=== PATIENT | male | born 1975 | race Caucasian/White ===

== ENCOUNTER → 2017-02-28 | Outpatient (CLI) | payer OTHER ==
[~2017-02-28] MED LIST: CLR10 PO
[2017-02-28 18:07] LABS: ALT/SGPT 40 U/L (12-78); AST/SGOT 25 U/L (15-37); BLOOD UREA NITROGEN 14 mg/dl (7-18); BUN/CREATININE RATIO 14.1 (10-20); CALCIUM 8.7 mg/dl (8.5-10.1); CARBON DIOXIDE 27 mmol/L (21-32); CHLORIDE 104 mmol/L (98-107); CREATININE 0.99 mg/dl (0.60-1.40); GLUCOSE 85 mg/dl (70-99); POTASSIUM 3.9 mmol/L (3.5-5.1); SODIUM 138 mmol/L (136-145)
[2017-02-28 18:10] LABS: ALKALINE PHOSPHATASE 107 U/L (45-117)
== END | disposition home or self-care (01) ==
LOC: C.LABPVFM 13:34
PROVIDERS: ATTEND Nurse Practitioner
DX: E80.4 Gilbert syndrome (principal)

== ENCOUNTER 2020-12-13 15:28 | Inpatient (IN) ==
[2020-12-13 16:43] LABS: Hematocrit (blood only) 43.7 % (42-52); Mean Corpuscular Hemoglobin 30.8 pg (25-34); Mean Corpuscular Hgb Conc 34.3 g/dL (32-36); Mean Corpuscular Volume 89.7 fL (80-100); Mean Platelet Volume 10.1 fL (7.4-10.4); Platelet Count 202 K/uL (130-400); RDW Coefficient of Variation 13.2 % (11.5-14.5); RDW Standard Deviation 43.7 fL (36.4-46.3); Red Blood Count 4.87 M/uL (4.7-6.1); White Blood Count 9.18 K/uL (4.8-10.8)
--- NOTE | 2020-12-13 16:47 | Emergency Department Note ---
Impression & Plan COVID-19, Hypoxia ED Provider Note Provider: Brennan Barnes MD DATE OF SERVICE: 12/13/2020 CHIEF COMPLAINT: Shortness of breath, Covid HISTORY OF PRESENT ILLNESS: Patient is a 45-year-old gentleman history of asthma presenting here today complaining of worsening shortness of breath in the set ting of Covid. Became symptomatic approximately 10 days ago. Tested positive just over a week ago. Other family members at home have been doing fairly well. Patient states fevers have begun to diego and his body myalgias have resolved. Denies significant nausea vomiting or diarrhea at this time. Reports that he has been following his pulse ox at home. Was seen here several days ago in the ER and had a evaluation. He is in the middle of azithromycin Z-Cody and has been taking some dexamethasone at home. Reports that he has a butyryl inhaler and the steroid have not seemed to help and he often gets coughing fits and short of breath with exertion. Denies chest pain or pressure. Denies any syncope. Patient reports that he is noted little bit overnight critically this morning that his pulse ox was dropped immediately after coughing fits with exertion. This afternoon he noted his pulse ox was dropping into the high 80s even at rest. Given this he came here for further evaluation. REVIEW OF SYSTEMS: A total of 10 review of systems was obtained and negative except as stated above in the HPI. PAST MEDICAL HISTORY: As noted above MEDICATIONS: Reviewed home medications with the patient SOCIAL HISTORY: Non-smoker, , lives at home PHYSICAL EXAM: GENERAL: alert and oriented in no acute distress seated on a chair in the room with mask in place Head: normocephalic and atraumatic EYES: No injection, discharge or icterus. NECK: Trachea midline. LUNGS: Airway patent. No retractions. Breath sounds clear with good air entry bilaterally. Mild tachypnea at times. HEART: Regular rate and rhythm. No chest wall tenderness ABDOMEN: Soft and non-tender, without guarding or rebound. SKIN: Acyanotic, warm, dry, without rashes EXTREMITIES: Without swelling, tenderness or deformity NEUROLOGICAL: No focal deficits. No aphasia. No facial droop or slurred speech. Ambulatory. EK bpm normal sinus rhythm. No PVC or PAC. No acute ST segment elevation or depression. QTC 432. CONTINUOUS CARDIAC MONITORING: was ordered and showed a heart rate of 70s to 90s bpm in normal sinus rhythm Patient's laboratory studies and imaging reviewed. Differential includes Reactive airway disease, pneumonia, pneumothorax, COPD, CHF, infections, cardiac ischemia, pulmonary embolism, musculoskeletal, gastrointestinal, as well as other pathologies. IMPRESSION/MEDICAL DECISION MAKING: Patient in the midst of the COVID-19 infection. Previously evaluated here approximately 2 days ago. Has been using inhaler and dexamethasone at home. Following pulse ox at home and now questioning some hypoxia at home. Patient denies significant pain. Does not appear meningitic. Denies significant abdominal or GI symptoms. Patient at rest here in the low 90s on room air initially. Discussed with the patient given complaints repeat blood work is reasonable as well as CT to exclude occult PE in the setting of Covid infection. Patient likely is otherwise fairly well-appearing and I doubt significant electrolyte abnormality. EKG and troponin were sent but have a low suspicion at this time for acute ACS. Blood work here without significant cytosis or anemia. No severe electrolyte abnormality. Troponin undetectable. CT scan per radiology without evidence of PE. I doubt of arterial pneumonia here. Has been on Z-Cody. Has been taking several days of some steroids at home. Patient requested a DuoNeb which was given. Patient's resting in the low 90s on room air. Ambulated him on reassessment in the room and after about a minute of walking around in the room patient's pulse ox dropped precipitously into the mid 80s. Patient was seated in the bed and places a nasal cannula oxygen 2L over the course of a minute or 2 rebounded in the low 90s. Given his desaturation discussed with the patient further observation here overnight to ensure stability of his condition. With the monitoring and adequate assessment of his true oxygen needs would be reasonable prior to discharge home likely with oxygen. Patient was in agreement this plan and the hospitalist was contacted. DIAGNOSIS: COVID-19, hypoxia DISPOSITION: Hospitalist will evaluate Patient was agreeable with this plan. Past Med/Surg History Medical History Asthma Surgical History H/O hernia repair Family History Father Hypertension Denies family history of Ovarian cancer Prostate cancer Diabetes Myocardial infarction Breast cancer Colorectal cancer Social History Smoking Status: Never smoker Second Hand Exposure: No; Hx Alcohol Use: Yes Alcohol type: beer Alcohol Intake Frequency: 2-3 x/Week Alcohol Intake Frequency Comment: 1-2 a week Hx Substance Use: No Preferred Language: Czech Communication Ability: Effective Radiography Technician Required: No Beliefs That Will Affect Care: None marital status: Current Living Situation: Spouse and Family current occupational status: employed Other Information That Helps Us Care for You: No Feels Safe at Home: Yes Safety Concerns: Feels Safe At This Time caffeine: Yes (coffee, tea, and soda) Dental Care, Regularly: Yes Physical Activity Frequency: Daily Seatbelt Use: always Sunscreen Use: No Assistive Devices: None Allergies Allergies Allergy/AdvReac Type Severity Reaction Status Date / Time No Known Drug Allergies AdvReac Unknown Verified 12/11/20 14:59 Home Meds Home Medications Medication Instructions Recorded Confirmed ibuprofen 200 mg tablet 400 mg PO UD PRN tab 09/10/18 12/13/20 acetaminophen 500 mg tablet 1,000 mg PO Q6H PRN 12/11/20 12/13/20 montelukast 10 mg tablet 10 mg PO DAILY 12/11/20 12/13/20 Previous Rx's Medication Instructions Recorded fluticasone furoate 100 1 inh INH DAILY #90 ea 05/02/20 mcg-vilanterol 25 mcg/dose inhalation powder (Breo Ellipta) albuterol sulfate 90 mcg/actuation 3 inh INHALATION Q6H #18 g 12/11/20 aerosol inhaler azithromycin 250 mg tablet See Rx Instructions PO .COMPLEX #6 12/11/20 (Zithromax Z-Cody) tab dexamethasone 6 mg tablet 6 mg PO DAILY #6 tab 12/11/20 (Decadron) Results & Data (ED) Vital Signs Vital Signs - 24 hr 12/13/20 15:30 12/13/20 16:19 12/13/20 16:30 Temperature 36 C L Temperature Source Temporal Artery Scan Pulse Rate 99 H 80 82 Pulse Rate [Right Radial] Pulse Rate from SpO2 Sensor 82 Pulse Rhythm Regular Respiratory Rate 22 21 22 Respiratory Effort / Characteristics Non-Labored Spontaneous Respiratory Depth Normal Blood Pressure 147/95 H 150/98 H 150/86 H Blood Pressure Mean 112 115 107 Blood Pressure Position Sitting Pulse Oximetry 91 94 94 Oxygen Delivery Method Room Air Room Air Room Air Oxygen Flow Rate Sepsis Recent Fever Within 48 Hours No Sepsis New/Unexplained Change in Mental Status N/A Sepsis Action Taken by Nursing No Action Required 12/13/20 17:00 12/13/20 17:30 12/13/20 18:00 Temperature Temperature Source Pulse Rate 78 80 75 Pulse Rate [Right Radial] Pulse Rate from SpO2 Sensor 78 77 76 Pulse Rhythm Respiratory Rate 21 19 22 Respiratory Effort / Characteristics Respiratory Depth Blood Pressure 143/85 H 143/92 H 142/82 H Blood Pressure Mean 104 109 102 Blood Pressure Position Pulse Oximetry 93 93 93 Oxygen Delivery Method Room Air Room Air Room Air Oxygen Flow Rate Sepsis Recent Fever Within 48 Hours Sepsis New/Unexplained Change in Mental Status Sepsis Action Taken by Nursing 12/13/20 18:33 12/13/20 18:34 12/13/20 18:40 Temperature Temperature Source Pulse Rate 75 81 Pulse Rate [Right Radial] 77 Pulse Rate from SpO2 Sensor 75 83 Pulse Rhythm Respiratory Rate 10 L 20 23 Respiratory Effort / Characteristics Spontaneous Respiratory Depth Blood Pressure Blood Pressure Mean Blood Pressure Position Pulse Oximetry 96 95 91 Oxygen Delivery Method Room Air Oxygen Flow Rate Sepsis Recent Fever Within 48 Hours Sepsis New/Unexplained Change in Mental Status Sepsis Action Taken by Nursing 12/13/20 18:50 12/13/20 19:00 12/13/20 19:10 Temperature Temperature Source Pulse Rate 82 79 78 Pulse Rate [Right Radial] Pulse Rate from SpO2 Sensor 84 82 80 Pulse Rhythm Respiratory Rate 23 21 24 Respiratory Effort / Characteristics Respiratory Depth Blood Pressure Blood Pressure Mean Blood Pressure Position Pulse Oximetry 93 93 92 Oxygen Delivery Method Room Air Oxygen Flow Rate Sepsis Recent Fever Within 48 Hours Sepsis New/Unexplained Change in Mental Status Sepsis Action Taken by Nursing 12/13/20 19:20 12/13/20 19:30 12/13/20 19:40 Temperature Temperature Source Pulse Rate 97 H 83 Pulse Rate [Right Radial] Pulse Rate from SpO2 Sensor 106 H 99 H 83 Pulse Rhythm Respiratory Rate 28 H 19 Respiratory Effort / Characteristics Respiratory Depth Blood Pressure 181/112 H Blood Pressure Mean 135 Blood Pressure Position Pulse Oximetry 88 L 95 94 Oxygen Delivery Method Nasal Cannula Oxygen Flow Rate 2 2 Sepsis Recent Fever Within 48 Hours Sepsis New/Unexplained Change in Mental Status Sepsis Action Taken by Nursing 12/13/20 19:53 12/13/20 20:02 12/13/20 20:10 Temperature Temperature Source Pulse Rate 80 78 Pulse Rate [Right Radial] Pulse Rate from SpO2 Sensor 80 78 Pulse Rhythm Respiratory Rate 25 H 10 L 12 Respiratory Effort / Characteristics Non-Labored Spontaneous Respiratory Depth Normal Blood Pressure Blood Pressure Mean Blood Pressure Position Pulse Oximetry 95 94 96 Oxygen Delivery Method Nasal Cannula Oxygen Flow Rate 2 Sepsis Recent Fever Within 48 Hours Sepsis New/Unexplained Change in Mental Status Sepsis Action Taken by Nursing 12/13/20 20:20 12/13/20 20:30 12/13/20 20:40 Temperature Temperature Source Pulse Rate 78 80 83 Pulse Rate [Right Radial] Pulse Rate from SpO2 Sensor 78 80 79 Pulse Rhythm Respiratory Rate 22 17 14 Respiratory Effort / Characteristics Respiratory Depth Blood Pressure Blood Pressure Mean Blood Pressure Position Pulse Oximetry 96 95 95 Oxygen Delivery Method Oxygen Flow Rate Sepsis Recent Fever Within 48 Hours Sepsis New/Unexplained Change in Mental Status Sepsis Action Taken by Nursing Laboratory Data Result diagrams: 12/13/20 16:30 12/13/20 16:30 Lab Results 12/13/20 12/13/20 12/13/20 Range/Units 16:30 16:30 16:30 WBC 9.18 (4.8-10.8) K/uL RBC 4.87 (4.7-6.1) M/uL Hgb 15.0 (14.0-18.0) g/dL Hct 43.7 (42-52) % MCV 89.7 (80-100) fL MCH 30.8 (25-34) pg MCHC 34.3 (32-36) g/dL RDW Std Deviation 43.7 (36.4-46.3) fL RDW Coeff of [place] 13.2 (11.5-14.5) % Plt Count 202 (130-400) K/uL MPV 10.1 (7.4-10.4) fL Immature Gran % (Auto) 0.0 % Neut % (Auto) 84.5 % Lymph % (Auto) 6.3 % [place] % (Auto) 9.2 % Eos % (Auto) 0.0 % Baso % (Auto) 0.0 % Neut # (Auto) 7.76 H (1.4-6.5) K/uL Lymph # (Auto) 0.58 L (1.2-3.4) K/uL [place] # (Auto) 0.84 H (0.11-0.59) K/uL Eos # (Auto) 0.00 (0-0.5) K/uL Baso # (Auto) 0.00 (0-0.2) K/uL Immature Gran # (Auto) 0.00 (0.00-0.02) K/uL PT 9.8 (9.0-12.0) Seconds INR 1.0 (0.9-1.1) APTT 23.3 (21.0-31.0) Seconds PTT Ratio 0.9 Sodium 138 (136-145) mmol/L Potassium 4.3 (3.5-5.1) mmol/L Chloride 104 (98-107) mmol/L Carbon Dioxide 27 (21-32) mmol/L Anion Gap 7.0 (3-11) BUN 19 H (7-18) mg/dl Creatinine 1.04 (0.6-1.4) mg/dl Est Cr Clr Drug Dosing 114.2 ml/min Est GFR ( Amer) 100.0 ml/min Est GFR (Non-Af Amer) 86.3 ml/min BUN/Creatinine Ratio 17.8 (10-20) Glucose 105 H (70-99) mg/dl Calcium 9.0 (8.5-10.1) mg/dl Magnesium 2.0 (1.8-2.4) mg/dl Total Bilirubin 0.6 (0.2-1) mg/dl AST 52 H (15-37) U/L ALT 55 (12-78) U/L Alkaline Phosphatase 68 (45-117) U/L Troponin I < 0.015 (0-0.045) ng/ml Total Protein 8.3 H (6.4-8.2) gm/dl Albumin 3.4 (3.4-5.0) gm/dl Globulin 4.9 H (2.5-4.0) gm/dl Albumin/Globulin Ratio 0.7 L (0.9-2) Urine Color Urine Appearance (Clear) Urine pH (4.5-7.5) Ur Specific [place] (1.000-1.030) Urine Protein (Negative) Urine Glucose (UA) (Negative) Urine Ketones (Negative) Urine Blood (Negative) Urine Nitrite (Negative) Urine Bilirubin (Negative) Urine Urobilinogen (Negative) Ur Leukocyte Esterase (Negative) COVID-19 Eval Order SARS-CoV-2 (PCR) (Negative) 12/13/20 12/13/20 12/13/20 Range/Units 19:52 19:52 19:52 WBC (4.8-10.8) K/uL RBC (4.7-6.1) M/uL Hgb (14.0-18.0) g/dL Hct (42-52) % MCV (80-100) fL MCH (25-34) pg MCHC (32-36) g/dL RDW Std Deviation (36.4-46.3) fL RDW Coeff of [place] (11.5-14.5) % Plt Count (130-400) K/uL MPV (7.4-10.4) fL Immature Gran % (Auto) % Neut % (Auto) % Lymph % (Auto) % [place] % (Auto) % Eos % (Auto) % Baso % (Auto) % Neut # (Auto) (1.4-6.5) K/uL Lymph # (Auto) (1.2-3.4) K/uL [place] # (Auto) (0.11-0.59) K/uL Eos # (Auto) (0-0.5) K/uL Baso # (Auto) (0-0.2) K/uL Immature Gran # (Auto) (0.00-0.02) K/uL PT (9.0-12.0) Seconds INR (0.9-1.1) APTT (21.0-31.0) Seconds PTT Ratio Sodium (136-145) mmol/L Potassium (3.5-5.1) mmol/L Chloride (98-107) mmol/L Carbon Dioxide (21-32) mmol/L Anion Gap (3-11) BUN (7-18) mg/dl Creatinine (0.6-1.4) mg/dl Est Cr Clr Drug Dosing ml/min Est GFR ( Amer) ml/min Est GFR (Non-Af Amer) ml/min BUN/Creatinine Ratio (10-20) Glucose (70-99) mg/dl Calcium (8.5-10.1) mg/dl Magnesium (1.8-2.4) mg/dl Total Bilirubin (0.2-1) mg/dl AST (15-37) U/L ALT (12-78) U/L Alkaline Phosphatase (45-117) U/L Troponin I (0-0.045) ng/ml Total Protein (6.4-8.2) gm/dl Albumin (3.4-5.0) gm/dl Globulin (2.5-4.0) gm/dl Albumin/Globulin Ratio (0.9-2) Urine Color Yellow Urine Appearance Clear (Clear) Urine pH 7.0 (4.5-7.5) Ur Specific [place] > 1.045 H (1.000-1.030) Urine Protein Negative (Negative) Urine Glucose (UA) Negative (Negative) Urine Ketones Negative (Negative) Urine Blood Negative (Negative) Urine Nitrite Negative (Negative) Urine Bilirubin Negative (Negative) Urine Urobilinogen Negative (Negative) Ur Leukocyte Esterase Negative (Negative) COVID-19 Eval Order Covid19 at [facility] SARS-CoV-2 (PCR) POSITIVE A* (Negative) Administered Medications Discontinued Medications Albuterol (Albut/Ipratrop 3mg/0.5mg Neb 3 Ml Vial) 3 ml NEB NOW STA Stop: 12/13/20 17:36 Last Admin: 12/13/20 18:32 Dose: 3 ml Documented by: [id number] Dexamethasone Sodium Phosphate (DexamethasonePf 10 Mg/Ml Vial) 10 mg IV NOW ONE Stop: 12/13/20 19:30 Last Admin: 12/13/20 19:49 Dose: 10 mg Documented by: [id number] Enoxaparin Sodium (Enoxaparin Inj 60 Mg/0.6 Ml Syr) 50 mg SQ NOW STA Stop: 12/13/20 22:26 Last Admin: 12/13/20 22:45 Dose: 50 mg Documented by: [id number] Hydrocodone Bit/Homatropine Methylb (Hydrocodone/Homatropine Syrup 5mg/1.5mg 5ml Udp) 5 ml PO NOW STA Stop: 12/13/20 20:37 Last Admin: 12/13/20 21:07 Dose: 5 ml Documented by: [id number] Ioversol (Optiray 320 125ml) 120 ml IV ONCE ONE Stop: 12/13/20 17:13 Last Admin: 12/13/20 17:12 Dose: 120 ml Documented by: [id number] Imaging Data Radiologist's Impression: Chest CTA 12/13/20 16:18 CT ANGIOGRAM OF THE CHEST CLINICAL HISTORY: Dyspnea, COVID COMPARISON STUDY: No previous studies for comparison. TECHNIQUE: Following the IV administration of 120 mL of Optiray, CT angiogram of the thorax was performed from the thoracic inlet to the lung bases utilizing the pulmonary embolus protocol. Images are reviewed in the axial, sagittal, and coronal planes. IV contrast was administered without complication. MIP imaging was performed. A dose lowering technique was utilized adhering to the principles of ALARA. CT DOSE: 514.24 mGycm FINDINGS: There is adequate opacification within main pulmonary artery. No pulmonary embolus is seen within main, lobar or segmental branches of pulmonary artery. Evaluation is slightly limited due to motion artifact. Pulmonary artery is not enlarged. No evidence of right heart strain seen. There is no axial, supra clavicle or internal mammary lymphadenopathy seen. Mediastinal lymph nodes are not enlarged. Visualized portion of thyroid gland shows no evidence of focal lesions. Mild hiatal hernia is demonstrated. Mild four-chamber cardiomegaly is seen. No pericardial effusion or significant coronary calcifications are seen. Tracheobronchial tree is patent. There are patchy mixed reticular/airspace and groundglass opacities in predominantly peripheral distribution involving bilateral upper and lower lobes in this patient with prior history of Covid. Limited evaluation of upper abdominal viscera shows no evidence of acute abnormalities. Osseous structures: Minimal degenerative changes of the spine. IMPRESSION: No acute pulmonary embolus. Multifocal pneumonia/Covid. Mild four-chamber cardiomegaly. The rest of findings as above. ACT 112: Negative or not required by law. The above report was generated using voice recognition software. It may contain grammatical, syntax or spelling errors. Electronically signed by: Edwige Maciel DO 12/13/2020 7:05 PM Chest X-Ray 12/13/20 16:18 XR chest 1V portable CLINICAL HISTORY: Dyspnea COMPARISON STUDY: December 11, 2020 FINDINGS: No pneumothorax. No pleural effusion. Interval worsening of patchy mixed reticular and airspace opacities throughout bilateral lungs, mostly within lower lung burger. Cardiomediastinal silhouette is within normal limits in size. No significant pulmonary vascular congestion.. Osseous structures: unremarkable IMPRESSION: 1. Interval worsening of multiple patchy infiltrates likely representing multifocal pneumonia . ACT 112: Negative or not required by law. The above report was generated using voice recognition software. It may contain grammatical, syntax or spelling errors. Electronically signed by: Edwige Maciel DO 12/13/2020 4:49 PM Discharge Plan Visit Data Chief Complaint: Shortness of Breath/Dyspnea Stated Complaint: FOLLOW UP FOR COVID/PNEUMONIA ED Provider: Brennan Barnes Discharge Problem: COVID-19, Hypoxia
--- NOTE | 2020-12-13 16:50 | XRay Report ---
XR chest 1V portable CLINICAL HISTORY: Dyspnea COMPARISON STUDY: December 11, 2020 FINDINGS: No pneumothorax. No pleural effusion. Interval worsening of patchy mixed reticular and airspace opacities throughout bilateral lungs, mostl y within lower lung burger. Cardiomediastinal silhouette is within normal limits in size. No significant pulmonary vascular congestion.. Osseous structures: unremarkable IMPRESSION: 1. Interval worsening of multiple patchy infiltrates likely representing multifocal pneumonia . ACT 112: Negative or not required by law. The above report was generated using voice recognition software. It may contain grammatical, syntax o r spelling errors. Electronically signed by: Edwige Maciel DO 12/13/2020 4:49 PM
[2020-12-13 16:52] LABS: Partial Thromboplastin Ratio 0.9; Partial Thromboplastin Time 23.3 Seconds (21.0-31.0); Prothrombin Time 9.8 Seconds (9.0-12.0)
[2020-12-13 16:59] LABS: Alanine Aminotransferase 55 U/L (12-78); Albumin Level 3.4 gm/dl (3.4-5.0); Aspartate Aminotransferase 52 U/L (15-37); BUN Creatinine Ratio 17.8 (10-20); Blood Urea Nitrogen 19 mg/dl (7-18); Carbon Dioxide 27 mmol/L (21-32); Chloride 104 mmol/L (98-107); Creatinine Clr Calc Pharmacy 114.2 ml/min; Est GFR (Non-African American) 86.3 ml/min; Glucose 105 mg/dl (70-99); Potassium 4.3 mmol/L (3.5-5.1); Sodium 138 mmol/L (136-145)
[2020-12-13 17:00] LABS: Lymphocytes # (auto) 0.58 K/uL (1.2-3.4); Lymphocytes % (auto) 6.3 %; Monocytes # (auto) 0.84 K/uL (0.11-0.59); Monocytes % (auto) 9.2 %; Neutrophils # (auto) 7.76 K/uL (1.4-6.5); Neutrophils % (auto) 84.5 %
[2020-12-13 17:03] LABS: Albumin Globulin Ratio 0.7 (0.9-2); Alkaline Phosphatase 68 U/L (45-117); Bilirubin,Total 0.6 mg/dl (0.2-1); Globulin 4.9 gm/dl (2.5-4.0); Total Protein 8.3 gm/dl (6.4-8.2); Troponin I < 0.015 ng/ml (0-0.045)
[2020-12-13] MEDS ORDERED: OPTIRAY 320 125ml IV ONE (17:12)
[2020-12-13] MEDS ORDERED: ALBUT/IPRATROP 3MG/0.5MG NEB 3 ML VIAL NEB STA (17:35)
--- NOTE | 2020-12-13 19:07 | CT Scan Report ---
CT ANGIOGRAM OF THE CHEST CLINICAL HISTORY: Dyspnea, COVID COMPARISON STUDY: No previous studies for comparison. TECHNIQUE: Following the IV administration of 120 mL of Optiray, CT angiogram of the thorax was perfo rmed from the thoracic inlet to the lung bases utilizing the pulmonary embolus protocol. Images are r eviewed in the axial, sagittal, and coronal planes. IV contrast was administered without complication . MIP imaging was performed. A dose lowering technique was utilized adhering to the principles of [place]. CT DOSE: 514.24 mGycm FINDINGS: There is adequate opacification within main pulmonary artery. No pulmonary embolus is seen within mathieu n, lobar or segmental branches of pulmonary artery. Evaluation is slightly limited due to motion denisse fact. Pulmonary artery is not enlarged. No evidence of right heart strain seen. There is no axial, supra clavicle or internal mammary lymphadenopathy seen. Mediastinal lymph nodes a re not enlarged. Visualized portion of thyroid gland shows no evidence of focal lesions. Mild hiatal hernia is demonstrated. Mild four-chamber cardiomegaly is seen. No pericardial effusion or significant coronary calcification s are seen. Tracheobronchial tree is patent. There are patchy mixed reticular/airspace and groundglass opacities in predominantly peripheral distr ibution involving bilateral upper and lower lobes in this patient with prior history of Covid. Limited evaluation of upper abdominal viscera shows no evidence of acute abnormalities. Osseous structures: Minimal degenerative changes of the spine. IMPRESSION: No acute pulmonary embolus. Multifocal pneumonia/Covid. Mild four-chamber cardiomegaly. The rest of findings as above. ACT 112: Negative or not required by law. The above report was generated using voice recognition software. It may contain grammatical, syntax o r spelling errors. Electronically signed by: Edwige Maciel DO 12/13/2020 7:05 PM
[2020-12-13] MEDS ORDERED: dexAMETHasone**PF** 10 MG/ML VIAL IV ONE (19:29)
[2020-12-13 20:17] LABS: Appearance Urine Clear (Clear); Bilirubin Urine Negative (Negative); Blood Urine Negative (Negative); Color Urine Yellow; Glucose Urine UA Negative (Negative); Ketones Urine Negative (Negative); Leukocyte Esterase Urine Negative (Negative); Nitrite Urine Negative (Negative); Protein Urine Negative (Negative); Specific Gravity Urine > 1.045 (1.000-1.030); Urobilinogen Urine Negative (Negative)
[2020-12-13] MEDS ORDERED: HYDROcodone/HOMATROPINE SYRUP 5MG/1.5MG 5ML UDP PO STA (20:36)
[2020-12-13] MEDS ORDERED: ENOXAPARIN 0.5 MG/KG SQ SCH (20:45)
--- NOTE | 2020-12-13 20:45 | History & Physical Report ---
Date of Service December 13, 2020 Assessment & Plan (1) Pneumonia due to COVID-19 virus: Plan: Pneumonia due to COVID-19 virus/asthma exacerbation/hypoxia- Decadron 6 mg IV every morning Azithromycin 500 mg IV daily Guaifenesin extended release 600 mg p.o. every 12 hours Hycodan 5 mils p.o. every 4 hours as needed cough Proventil HFA 2 puffs 4 times daily, and every 2 hours as needed Vitamin D 5000 international units p.o. every morning Zinc sulfate turn 20 mg p.o. every morning Zofran 4 mg IV every 6 hours as needed DuoNebs every 2 hours as needed Continue montelukast 10 mg p.o. daily and Breo Ellipta Acetaminophen 650 mg p.o. every 6 hours as needed mild pain or fever (2) Asthma: Plan: See above (3) Hypoxia: Plan: Nasal cannula oxygen, titrate to keep pulse ox around 95% History of Present Illness Chief Complaint: The patient presents to the emergency department with complaint of worsening cough associated hypoxia and shortness of breath due to COVID-19 infection Primary Care Provider: RADHA Barber The patient is a 45-year-old male with a past medical history including asthma, who presents to the emergency department with symptoms that initially began about 10 days ago, was tested 8 days ago, and had results returned 6 days ago positive for COVID-19 infection at a local emergent care facility. He was initially seen at the emergency department here on 12/11, and placed on Decadron 6 mg p.o. daily and azithromycin Z-Cody. He has been following his pulse ox at home, and reports that in particular associated with paroxysmal coughing, his pulse ox was decreased into the mid 80s. He thus presents to the ED for reassessment. Pulse ox on room air is recorded 88%. Chest x-ray and CT angiography of chest are consistent with multifocal pneumonia and COVID-19 infection. Repeat laboratory testing in the ED this evening confirmed COVID-19 infection. He was given Decadron 10 mg IV by the ED Allergies Allergy/AdvReac Type Severity Reaction Status Date / Time No Known Drug Allergies AdvReac Unknown Verified 12/11/20 14:59 Home Medications Medication Instructions Recorded Confirmed Type ibuprofen 200 mg tablet 400 mg PO UD PRN tab 09/10/18 12/13/20 History fluticasone furoate 100 1 inh INH DAILY #90 ea 05/02/20 12/13/20 Rx mcg-vilanterol 25 mcg/dose inhalation powder (Breo Ellipta) acetaminophen 500 mg tablet 1,000 mg PO Q6H PRN 12/11/20 12/13/20 History albuterol sulfate 90 mcg/actuation 3 inh INHALATION Q6H #18 g 12/11/20 12/13/20 Rx aerosol inhaler azithromycin 250 mg tablet See Rx Instructions PO .COMPLEX #6 12/11/20 12/13/20 Rx (Zithromax Z-Cody) tab dexamethasone 6 mg tablet 6 mg PO DAILY #6 tab 12/11/20 12/13/20 Rx (Decadron) montelukast 10 mg tablet 10 mg PO DAILY 12/11/20 12/13/20 History Past Med/Surg History Medical History (Updated 12/13/20 @ 23:38 by Jose R Martel MD) Asthma Surgical History H/O hernia repair Family History Father Hypertension Denies family history of Ovarian cancer Prostate cancer Diabetes Myocardial infarction Breast cancer Colorectal cancer Social History Smoking Status: Never smoker Second Hand Exposure: No; Hx Alcohol Use: Yes Alcohol type: beer Alcohol Intake Frequency: 2-3 x/Week Alcohol Intake Frequency Comment: 1-2 a week Hx Substance Use: No Preferred Language: Czech Communication Ability: Effective Configuration Management Administrator Required: No Beliefs That Will Affect Care: None marital status: Current Living Situation: Spouse and Family current occupational status: employed Other Information That Helps Us Care for You: No Feels Safe at Home: Yes Safety Concerns: Feels Safe At This Time caffeine: Yes (coffee, tea, and soda) Dental Care, Regularly: Yes Physical Activity Frequency: Daily Seatbelt Use: always Sunscreen Use: No Assistive Devices: None Review of Systems Review of Systems: The patient denies chest pain, palpitations, lower extremity swelling, fevers, chills, sweats, nausea, vomiting, diarrhea , constipation, abdominal pain, pelvic pain, blood in urine or stool, dysuria, urinary frequency or urgency, lightheadedness, dizziness, headache, memory loss, loss of consciousness, rash, abnormal bruising or bleeding, imbalance, focal weakness, numbness or tingling in arms or legs, generalized arthralgias or myalgias, back or neck pain, or night sweats. The review of systems is otherwise negative other than for that already noted above, and at least 10 systems have been reviewed. Physical Exam Physical Exam: The patient is awake, alert and oriented 3, well developed and well nourished, normocephalic and atraumatic, lying in bed and in no acute distress. HEENT--PERRL, EOMI, mucous membranes and oropharynx normal. Neck--supple. No JVD. No bruits. Thyroid normal, trachea midline, no adenopathy. Heart--normal S1 and S2. No murmurs, rubs or gallops. Lungs--few coarse breath sounds bilaterally. No respiratory distress, no accessory muscle use. Frequent cough noted Abdomen--normal bowel sounds and soft. Nontender. Nondistended, no hernias or masses, no organomegaly. Extremities--no cyanosis or clubbing. No edema. Dermatologic--normal skin turgor, normal color, no abnormal lymph nodes, no rash. Neurologic--cranial nerves II through XII grossly intact. Rheumatologic--normal range of motion. Psychiatric--normal affect. Results & Data Results & Data ([facility]) Vital Signs (Past 12 Hours) Vital Signs Temp Pulse Pulse Resp BP Pulse Ox 12/13/20 19:53 25 H 95 12/13/20 19:40 83 19 181/112 H 94 12/13/20 19:30 97 H 28 H 95 12/13/20 19:20 88 L 12/13/20 19:10 78 24 92 12/13/20 19:00 79 21 93 12/13/20 18:50 82 23 93 12/13/20 18:40 81 23 91 12/13/20 18:34 77 20 95 12/13/20 18:33 75 10 L 96 12/13/20 18:00 75 22 142/82 H 93 12/13/20 17:30 80 19 143/92 H 93 12/13/20 17:00 78 21 143/85 H 93 12/13/20 16:30 82 22 150/86 H 94 12/13/20 16:19 80 21 150/98 H 94 12/13/20 15:30 96.8 F L 99 H 22 147/95 H 91 Laboratory Results Laboratory Results WBC 9.18 K/uL (4.8-10.8) 12/13/20 16:30 RBC 4.87 M/uL (4.7-6.1) 12/13/20 16:30 Hgb 15.0 g/dL (14.0-18.0) 12/13/20 16:30 Hct 43.7 % (42-52) 12/13/20 16:30 MCV 89.7 fL (80-100) 12/13/20 16:30 MCH 30.8 pg (25-34) 12/13/20 16:30 MCHC 34.3 g/dL (32-36) 12/13/20 16:30 RDW Std Deviation 43.7 fL (36.4-46.3) 12/13/20 16:30 RDW Coeff of [place] 13.2 % (11.5-14.5) 12/13/20 16:30 Plt Count 202 K/uL (130-400) 12/13/20 16:30 MPV 10.1 fL (7.4-10.4) 12/13/20 16:30 Immature Gran % (Auto) 0.0 % 12/13/20 16:30 Neut % (Auto) 84.5 % 12/13/20 16:30 Lymph % (Auto) 6.3 % 12/13/20 16:30 [place] % (Auto) 9.2 % 12/13/20 16:30 Eos % (Auto) 0.0 % 12/13/20 16:30 Baso % (Auto) 0.0 % 12/13/20 16:30 Neut # (Auto) 7.76 K/uL (1.4-6.5) H 12/13/20 16:30 Lymph # (Auto) 0.58 K/uL (1.2-3.4) L 12/13/20 16:30 [place] # (Auto) 0.84 K/uL (0.11-0.59) H 12/13/20 16:30 Eos # (Auto) 0.00 K/uL (0-0.5) 12/13/20 16:30 Baso # (Auto) 0.00 K/uL (0-0.2) 12/13/20 16:30 Immature Gran # (Auto) 0.00 K/uL (0.00-0.02) 12/13/20 16:30 PT 9.8 Seconds (9.0-12.0) 12/13/20 16:30 INR 1.0 (0.9-1.1) 12/13/20 16:30 APTT 23.3 Seconds (21.0-31.0) 12/13/20 16:30 PTT Ratio 0.9 12/13/20 16:30 Sodium 138 mmol/L (136-145) 12/13/20 16:30 Potassium 4.3 mmol/L (3.5-5.1) 12/13/20 16:30 Chloride 104 mmol/L (98-107) 12/13/20 16:30 Carbon Dioxide 27 mmol/L (21-32) 12/13/20 16:30 Anion Gap 7.0 (3-11) 12/13/20 16:30 BUN 19 mg/dl (7-18) H 12/13/20 16:30 Creatinine 1.04 mg/dl (0.6-1.4) 12/13/20 16:30 Est Cr Clr Drug Dosing 114.2 ml/min 12/13/20 16:30 Est GFR ( Amer) 100.0 ml/min 12/13/20 16:30 Est GFR (Non-Af Amer) 86.3 ml/min 12/13/20 16:30 BUN/Creatinine Ratio 17.8 (10-20) 12/13/20 16:30 Glucose 105 mg/dl (70-99) H 12/13/20 16:30 Calcium 9.0 mg/dl (8.5-10.1) 12/13/20 16:30 Magnesium 2.0 mg/dl (1.8-2.4) 12/13/20 16:30 Total Bilirubin 0.6 mg/dl (0.2-1) 12/13/20 16:30 AST 52 U/L (15-37) H 12/13/20 16:30 ALT 55 U/L (12-78) 12/13/20 16:30 Alkaline Phosphatase 68 U/L (45-117) 12/13/20 16:30 Troponin I < 0.015 ng/ml (0-0.045) 12/13/20 16:30 Total Protein 8.3 gm/dl (6.4-8.2) H 12/13/20 16:30 Albumin 3.4 gm/dl (3.4-5.0) 12/13/20 16:30 Globulin 4.9 gm/dl (2.5-4.0) H 12/13/20 16:30 Albumin/Globulin Ratio 0.7 (0.9-2) L 12/13/20 16:30 Urine Color Yellow 12/13/20 19:52 Urine Appearance Clear (Clear) 12/13/20 19:52 Urine pH 7.0 (4.5-7.5) 12/13/20 19:52 Ur Specific [place] > 1.045 (1.000-1.030) H 12/13/20 19:52 Urine Protein Negative (Negative) 12/13/20 19:52 Urine Glucose (UA) Negative (Negative) 12/13/20 19:52 Urine Ketones Negative (Negative) 12/13/20 19:52 Urine Blood Negative (Negative) 12/13/20 19:52 Urine Nitrite Negative (Negative) 12/13/20 19:52 Urine Bilirubin Negative (Negative) 12/13/20 19:52 Urine Urobilinogen Negative (Negative) 12/13/20 19:52 Ur Leukocyte Esterase Negative (Negative) 12/13/20 19:52 COVID-19 Eval Order Covid19 at [facility] 12/13/20 19:52 SARS-CoV-2 (PCR) POSITIVE (Negative) A* 12/13/20 19:52 Impressions Chest CTA 12/13/20 16:18 CT ANGIOGRAM OF THE CHEST CLINICAL HISTORY: Dyspnea, COVID COMPARISON STUDY: No previous studies for comparison. TECHNIQUE: Following the IV administration of 120 mL of Optiray, CT angiogram of the thorax was performed from the thoracic inlet to the lung bases utilizing the pulmonary embolus protocol. Images are reviewed in the axial, sagittal, and coronal planes. IV contrast was administered without complication. MIP imaging was performed. A dose lowering technique was utilized adhering to the principles of ALARA. CT DOSE: 514.24 mGycm FINDINGS: There is adequate opacification within main pulmonary artery. No pulmonary embolus is seen within main, lobar or segmental branches of pulmonary artery. Evaluation is slightly limited due to motion artifact. Pulmonary artery is not enlarged. No evidence of right heart strain seen. There is no axial, supra clavicle or internal mammary lymphadenopathy seen. Mediastinal lymph nodes are not enlarged. Visualized portion of thyroid gland shows no evidence of focal lesions. Mild hiatal hernia is demonstrated. Mild four-chamber cardiomegaly is seen. No pericardial effusion or significant coronary calcifications are seen. Tracheobronchial tree is patent. There are patchy mixed reticular/airspace and groundglass opacities in predominantly peripheral distribution involving bilateral upper and lower lobes in this patient with prior history of Covid. Limited evaluation of upper abdominal viscera shows no evidence of acute abnormalities. Osseous structures: Minimal degenerative changes of the spine. IMPRESSION: No acute pulmonary embolus. Multifocal pneumonia/Covid. Mild four-chamber cardiomegaly. The rest of findings as above. ACT 112: Negative or not required by law. The above report was generated using voice recognition software. It may contain grammatical, syntax or spelling errors. Electronically signed by: Edwige Maciel DO 12/13/2020 7:05 PM Chest X-Ray 12/13/20 16:18 XR chest 1V portable CLINICAL HISTORY: Dyspnea COMPARISON STUDY: December 11, 2020 FINDINGS: No pneumothorax. No pleural effusion. Interval worsening of patchy mixed reticular and airspace opacities throughout bilateral lungs, mostly within lower lung burger. Cardiomediastinal silhouette is within normal limits in size. No significant pulmonary vascular congestion.. Osseous structures: unremarkable IMPRESSION: 1. Interval worsening of multiple patchy infiltrates likely representing multifocal pneumonia . ACT 112: Negative or not required by law. The above report was generated using voice recognition software. It may contain grammatical, syntax or spelling errors. Electronically signed by: Edwige Maciel DO 12/13/2020 4:49 PM Code Status & VTE Plan Code Status Full code VTE Prophylaxis Plan VTE Prophylaxis will be ordered: Yes PG Care Time/CCT Total # of Minutes Spent Total Time Spent with Patient: Total time spent is greater than 50% in coordination of care (as documented) at patient's floor/unit and/or counseling patient: Coding Level of Care Code 74255 Initial Inpt Care Lvl 3 Diagnoses Pneumonia due to COVID-19 virus U07.1; J12.82 Asthma J45.909 Hypoxia R09.02
[2020-12-13] MEDS ORDERED: ENOXAPARIN INJ 60 MG/0.6 ML SYR SQ STA (22:25)
[2020-12-13] MEDS ORDERED: ACETAMINOPHEN 325 MG TAB PO PRN (23:08)
[2020-12-13] MEDS ORDERED: ALBUT/IPRATROP 3MG/0.5MG NEB 3 ML VIAL NEB PRN (23:08)
[2020-12-13] MEDS ORDERED: ONDANSETRON INJ 2 MG/ML 2 ML VIAL IV PRN (23:08)
[2020-12-13] MEDS ORDERED: HYDROcodone/HOMATROPINE SYRUP 5MG/1.5MG 5ML UDP PO PRN (23:08)
[2020-12-13] MEDS ORDERED: ALBUTEROL HFA 8 GM INHALER INH PRN (23:15)
[2020-12-14] MEDS: ALBUTEROL HFA 8 GM INHALER INH SCH ×5 (00:23→23:46)
--- NOTE | 2020-12-14 07:30 | Electrocardiogram Report ---
Test Reason : Blood Pressure : / mmHG Vent. Rate : 077 BPM Atrial Rate : 077 BPM P-R Int : 164 ms QRS Dur : 088 ms QT Int : 382 ms P-R-T Axes : 058 042 026 degrees QTc Int : 432 ms Normal sinus rhythm Normal ECG When compared with ECG of 11-DEC-2020 15:40, No significant change was found Confirmed by Santo Vergara ([id number]) on 12/14/2020 7:29:35 AM Referred By: REFERRED SELF Confirmed By:Yosvany Vergara
[2020-12-14] MEDS: AZITHROMYCIN 500 MG in DEXTROSE 5% 250 ML IV SCH (08:17)
[2020-12-14] MEDS: CHOLECALCIFEROL 1,000 UNITS 25 MCG TAB PO SCH (08:18)
[2020-12-14] MEDS: FLUTICASONE/VILANTEROL 100/25MCG 14 PUFFS/INHALER INH SCH (08:18)
[2020-12-14] MEDS: MONTELUKAST SODIUM 10 MG TABLET PO SCH (08:18)
[2020-12-14] MEDS: ZINC SULFATE 220 MG CAPSULE PO SCH (08:19)
[2020-12-14] MEDS: guaiFENesin 600 MG TABCR PO SCH ×3 (08:19→21:15)
[2020-12-14] MEDS: dexAMETHasone 6 MG in SYRINGE 0 ML IV SCH (08:21)
--- NOTE | 2020-12-14 11:11 | Hospitalist Progress Note ---
Date of Service December 14, 2020 Assessment & Plan (1) Pneumonia due to COVID-19 virus: Plan: Pneumonia due to COVID-19 virus/asthma exacerbation/hypoxia- Decadron 6 mg IV every morning, today would be day 4 of treatment (3 days of dexamethasone 6mg PO at home, started 12/11) Azithromycin 500 mg IV daily x 5 days, can change to PO on discharge Codeine 10mL q6 PRN for cough, Tessalon pearles nebs PRN Vitamin D 5000 daily Zinc sulfate 220 mg daily Continue montelukast 10 mg p.o. daily and Breo Ellipta Acetaminophen 650 mg p.o. every 6 hours as needed mild pain or fever down to room air today, breathing well in prone position, eating and drinking well if he stays on room air for 24 hours he could be ready for discharge tomorrow could check 2 step to see if he needs oxygen on exertion (2) Asthma: Plan: See above no wheezing on exam, not a flare of asthma (3) Hypoxia: Plan: acute respiratory failure with hypoxia he is tachypneic, but not in distress, saturations 88-89% on room air at rest in the ED, he had been monitoring pulse ox at home currently he is 91-92% on room air while prone, continue to lay prone today, doing well again, might be ready for discharge tomorrow if he remains on room air could consider a two step to see if he needs oxygen on exertion Admission and Anticipated Discharge Date Admission Date: December 13, 2020 Subjective patient laying prone, having coughing spells, very little sputum production, no fever reviewed chart, he has been sick for at least 10 days now, had fever in the beginning but last fever was 12/11 he was started on dexamethasone 6mg PO outpatient on 12/11 so today is day 4 of treatment he has been eating and drinking fine he is off oxygen right now while prone, encouraged him to stay in that position, if he stays off oxygen for 24 hours might be able to go home tomorrow, will see how he does no labs this morning, can check tomorrow Review of Systems Review of Systems: All systems reviewed & are unremarkable except as noted in Subjective Constitutional: + fatigue and + weakness; no fever, no chills and no sweats Respiratory: + cough, + dyspnea and + dyspnea on exertion; no sputum production Cardiovascular: no chest pain and no edema Gastrointestinal: no abdominal pain, no nausea, no vomiting, no constipation and no diarrhea/loose stools Physical Exam Constitutional: well developed, well nourished, + ill appearing and comfortable; no acute distress Neck: trachea midline, no thyromegaly Respiratory: + cough and + tachypneic; no respiratory distress, no labored breathing and does not use accessory muscles Auscultation: lungs clear to auscultation bilaterally Cardiovascular: RRR, no murmur, no edema Gastrointestinal (Abdomen): normal bowel sounds, soft, nontender, no hepatosplenomegaly Musculoskeletal: no cyanosis or clubbing, extremities motor strength 5/5 Skin: no rashes, warm and dry Neurologic: normal touch/pain/proprioception, CN's II-XI intact bilaterally, moves all extremities and awake; no focal motor deficits Psychiatric: A+Ox3, euthymic affect Results & Data Results & Data ([facility]) Vital Signs (Past 12 Hours) Vital Signs Temp Pulse Pulse Pulse Resp BP Pulse Ox 12/14/20 10:00 12/14/20 07:27 67 12/14/20 07:22 71 20 94 12/14/20 07:06 36.6 C 71 20 140/75 89 L 12/14/20 05:55 86 12/14/20 03:44 36.6 C 65 19 138/83 95 12/14/20 00:23 67 20 95 12/13/20 23:09 36.6 C 74 20 160/92 H 95 Pulse Ox 12/14/20 10:00 95 12/14/20 07:27 12/14/20 07:22 12/14/20 07:06 12/14/20 05:55 12/14/20 03:44 12/14/20 00:23 12/13/20 23:09 Medications Administered Current Inpatient Medications Acetaminophen (Acetaminophen 325 Mg Tab) 650 mg PO Q4H PRN PRN Reason: Pain or Fever Stop: 01/12/21 23:07 Albuterol (Albuterol Hfa 8 Gm Inhaler) 3 puffs INH Q6R [facility] Stop: 01/13/21 11:29 Last Admin: 12/14/20 07:21 Dose: 3 puffs Documented by: Albuterol (Albut/Ipratrop 3mg/0.5mg Neb 3 Ml Vial) 3 ml NEB Q2H PRN PRN Reason: dyspnea Stop: 01/12/21 23:07 Albuterol (Albuterol Hfa 8 Gm Inhaler) 3 puffs INH Q2H PRN PRN Reason: SHORTNESS OF BREATH Stop: 01/12/21 23:14 Benzonatate (Benzonatate 100 Mg Capsule) 100 mg PO TID [facility] Stop: 01/13/21 13:59 Enoxaparin Sodium (Enoxaparin Inj 60 Mg/0.6 Ml Syr) 50 mg SQ Q24H SHARIF Stop: 01/13/21 20:59 Fluticasone/Vilanterol (Fluticasone/Vilanterol 100/25mcg 14 Puffs/Inhaler) 1 puffs INH DAILY SHARIF Stop: 01/13/21 08:59 Last Admin: 12/14/20 08:18 Dose: 1 puffs Documented by: Guaifenesin (Guaifenesin 600 Mg Tabcr) 600 mg PO Q12 SHARIF Stop: 01/12/21 23:29 Last Admin: 12/14/20 08:19 Dose: 600 mg Documented by: Guaifenesin/Codeine Phosphate (Guaifenesin/Codeine 200mg/20mg 10ml Udc) 10 ml PO Q6H PRN PRN Reason: Cough Stop: 01/13/21 11:04 Hydrocodone Bit/Homatropine Methylb (Hydrocodone/Homatropine Syrup 5mg/1.5mg 5ml Udp) 5 ml PO Q4H PRN PRN Reason: Cough Stop: 12/27/20 23:07 Dexamethasone 6 mg/ Syringe 1.5 mls @ 1 mls/min IV DAILY SHARIF Stop: 01/13/21 08:59 Last Admin: 12/14/20 08:21 Dose: 1 mls/min Documented by: Azithromycin 500 mg/ Dextrose 255 mls @ 125 mls/hr IV DAILY [facility]; Protocol Stop: 12/21/20 08:59 Last Infusion: 12/14/20 11:23 Dose: Infused Documented by: Montelukast Sodium (Montelukast Sodium 10 Mg Tablet) 10 mg PO DAILY [facility] Stop: 01/13/21 08:59 Last Admin: 12/14/20 08:18 Dose: 10 mg Documented by: Ondansetron HCl (Ondansetron Inj 2 Mg/Ml 2 Ml Vial) 4 mg IV Q6H PRN PRN Reason: Nausea Stop: 01/12/21 23:07 Vitamin D (Cholecalciferol 1,000 Units 25 Mcg Tab) 5,[facility] Stop: 01/13/21 08:59 Last Admin: 12/14/20 08:18 Dose: 5,000 units Documented by: Zinc Sulfate (Zinc Sulfate 220 Mg Capsule) 220 [facility] [place] Stop: 01/13/21 08:59 Last Admin: 12/14/20 08:19 Dose: 220 mg Documented by: PG Care Time/CCT Total # of Minutes Spent Total Time Spent with Patient: Total time spent is greater than 50% in coordination of care (as documented) at patient's floor/unit and/or counseling patient: Coding Level of Care Code 42336 Subseq Hosp Care Lvl 2 Diagnoses Pneumonia due to COVID-19 virus U07.1; J12.82 Asthma J45.909 Hypoxia R09.02
[2020-12-14] MEDS: BENZONATATE 100 MG CAPSULE PO SCH ×2 (12:09→21:15)
[2020-12-14] MEDS ORDERED: ENOXAPARIN INJ 60 MG/0.6 ML SYR SQ SCH (21:00)
[2020-12-15 06:19] LABS: Hemoglobin 14.3 g/dL (14.0-18.0); Mean Corpuscular Hemoglobin 30.6 pg (25-34); Mean Corpuscular Volume 89.7 fL (80-100); Mean Platelet Volume 9.8 fL (7.4-10.4); Platelet Count 226 K/uL (130-400); RDW Coefficient of Variation 13.1 % (11.5-14.5); RDW Standard Deviation 42.9 fL (36.4-46.3); Red Blood Count 4.68 M/uL (4.7-6.1); White Blood Count 8.96 K/uL (4.8-10.8)
[2020-12-15 06:58] LABS: BUN Creatinine Ratio 18.7 (10-20); C Reactive Protein 0.75 mg/dl (0-0.29); Calcium 8.3 mg/dl (8.5-10.1); Creatinine Clr Calc Pharmacy 109.5 ml/min; Est GFR (African American) 93.5 ml/min; Est GFR (Non-African American) 80.6 ml/min; Magnesium 2.4 mg/dl (1.8-2.4); Potassium 4.4 mmol/L (3.5-5.1)
[2020-12-15] MEDS: ALBUTEROL HFA 8 GM INHALER INH SCH ×2 (07:40→12:56)
[2020-12-15] MEDS: AZITHROMYCIN 500 MG in DEXTROSE 5% 250 ML IV SCH (09:34)
[2020-12-15] MEDS: dexAMETHasone 6 MG in SYRINGE 0 ML IV SCH (09:34)
[2020-12-15] MEDS: ZINC SULFATE 220 MG CAPSULE PO SCH (09:35)
[2020-12-15] MEDS: MONTELUKAST SODIUM 10 MG TABLET PO SCH (09:35)
[2020-12-15] MEDS: CHOLECALCIFEROL 1,000 UNITS 25 MCG TAB PO SCH (09:35)
[2020-12-15] MEDS: BENZONATATE 100 MG CAPSULE PO SCH ×2 (09:35→14:13)
[2020-12-15] MEDS: FLUTICASONE/VILANTEROL 100/25MCG 14 PUFFS/INHALER INH SCH (09:36)
[2020-12-15] MEDS: guaiFENesin 600 MG TABCR PO SCH (09:37)
--- NOTE | 2020-12-15 15:17 | Discharge Summary ---
Date of Service December 15, 2020 Admission HPI Per Admitting Provider The patient is a 45-year-old male with a past medical history including asthma, who presents to the emergency department with symptoms that initially began about 10 days ago, was tested 8 days ago, and had results returned 6 days ago positive for COVID-19 infection at a local emergent care facility. He was initially seen at the emergency department here on 12/11, and placed on Decadron 6 mg p.o. daily and azithromycin Z-Cody. He has been following his pulse ox at home, and reports that in particular associated with paroxysmal coughing, his pulse ox was decreased into the mid 80s. He thus presents to the ED for reassessment. Pulse ox on room air is recorded 88%. Chest x-ray and CT angiography of chest are consistent with multifocal pneumonia and COVID-19 infection. Repeat laboratory testing in the ED this evening confirmed COVID-19 infection. He was given Decadron 10 mg IV by the ED Principal Diagnosis COVID-19 Pneumonia, Acute respiratory failure with hypoxia Discharge Exam Constitutional WD/WN, vitals as above Eyes + anicteric sclerae Neck trachea midline, no thyromegaly Respiratory normal respiratory effort Auscultation: + crackles (in middle lung burger bilat); no rhonchi and no wh eezes Cardiovascular RRR, no murmur, no edema Extremities: no calf tenderness and no edema Chest (Breasts) Chest: normal inspection of chest Gastrointestinal (Abdomen) normal bowel sounds, soft, nontender, no hepatosplenomegaly Musculoskeletal Extremities: extremities normal to inspection; no cyanosis and no clubbing Skin no rashes, warm and dry Neurologic moves all extremities and awake; no focal motor deficits Psychiatric A+Ox3, euthymic affect Lymphatic no lymphedema Discharge Data Allergies Allergy/AdvReac Type Severity Reaction Status Date / Time No Known Drug Allergies AdvReac Unknown Verified 12/11/20 14:59 Consultations 12/13/20 19:34 ED Decision to Admit Stat Ordered Studies 12/13/20 16:18 CT angio chest PE protocol Stat Hospital Course (1) Pneumonia due to COVID-19 virus: Pneumonia due to COVID-19 virus/asthma exacerbation/hypoxia- Decadron 6 mg IV every morning was given, today would be day 5 of treatment (3 days of dexamethasone 6mg PO at home, started 12/11)-finish out rest of course at home for 4 more days that he already has received Azithromycin 500 mg daily and can now discontinue as has had a 5 day course continue Tessalon pearles prn albuterol HFA prn Continue montelukast 10 mg p.o. daily and Breo Ellipta Acetaminophen 650 mg p.o. every 6 hours as needed mild pain or fever Improved, still some crackles, needs 2LNC O2 with exertion only stable for dc to home Xarelto 10mg po daily for VTE prophylaxis for 35 days prescribed. Sister had VTE with her COVID and he has had prolonged immobility, hospitalization for respiratory insufficiency and infectious illness, is over age 40.Discussed with him regarding risks of bleeding and benefits of VTE prevention. (2) Asthma: See above no wheezing on exam, not a flare of asthma on dexamethasone as above for COVID PNA (3) Hypoxia: acute respiratory failure with hypoxia he was tachypneic, but not in distress, saturations 88-89% on room air at rest in the ED, he had been monitoring pulse ox at home improved as above, needs 2LNC O2 with exertion on discharge, much improved overall Dispo-stable for dc to home Total Time Total Time Spent Total Time Spent (In Minutes): 35 min Discharge Plan Discharge Items Patient Disposition: Home - Self-Care Reason For Visit: COVID-19 PNEUMONIA WITH HYPOXIA Discharge Diagnosis: COVID-19 Pneumonia, Hypoxia Condition on Discharge: Fair Activity: As commented below Lifting: Gradually increase as tolerated Bathing: No limitations Exercise/Sports: Gradually increase as tolerated Driving/Machine Use: No limitations Non-emergency contact: Primary Care Provider Call non-emergency contact if: you have any medication questions and your symptoms worsen Follow-up/Referrals: Janny Connors CRNP [Primary Care Provider] - (Follow up within 1-2 weeks.) Diet: Regular Addtl Attending Provider Instructions: Please finish out the dexamethasone that you have at home to reduce inflammation in your lungs. You will need to have a repeat chest xray in 4-6 weeks to ensure your pneumonia is resolved. Continue the albuterol inhaler with the spacer every 4-6 hours as needed for cough. Please use the supplemental oxygen at 2L via the nasal cannula with any exertion until your PCP tells you that it is safe to stop using it. Please take the low dose of Xarelto as a blood thinner to prevent you from getting a blood clot in your leg or lung as we discussed. COVID-19 itself, as well as prolonged immobility, pneumonia, and hospitalization all can put you at higher risk for getting a blood clot in the leg or lung. If you develop leg pain or swelling, chest pain, or worsening shortness of breath, please return to the hospital to get checked out. If you have any issues with bleeding such as blood in your stool, urine, vomiting blood, serious trauma with bleeding, or hit your head and have a headache, please also return to the hospital to get checked out. Pending Studies at Discharge: No Stand-Alone Forms: My [facility] Medications and DC Order Prescriptions: New benzonatate [Tessalon Perles] 100 mg Capsule 100 mg PO TID PRN (Reason: cough) Qty: 30 RF: 0 Xarelto 10 mg tablet 10 mg PO DAILY 35 Days Qty: 35 RF: 0 Continued Breo Ellipta 100-25 mcg/dose blister with device 1 inh INH DAILY Qty: 90 RF: 3 montelukast 10 mg tablet 10 mg PO DAILY RF: 0 acetaminophen 500 mg Tablet 1,000 mg PO Q6H PRN (Reason: Fever Or Pain) RF: 0 dexamethasone [Decadron] 6 mg tablet 6 mg PO DAILY Qty: 6 RF: 0 albuterol sulfate 90 mcg/actuation HFA aerosol inhaler 3 inh inhalation Q6H Qty: 18 RF: 2 Discontinued ibuprofen 200 mg tablet 400 mg PO UD PRN (Reason: Fever Or Pain) RF: 0 azithromycin [Zithromax Z-Cody] 250 mg tablet See Rx Instructions PO .COMPLEX Qty: 6 RF: 0 Discharge Orders: Discharge Order (Routine); Ordered 12/15/20 Ordered By: Danisha Calhoun Admission Data Admit Date/Time: 12/13/20 20:44 Attending Provider: Danisha Calhoun Admit Provider: Jose R Martel Primary Care Provider: Janny Connors Other Providers: Jose R Martel Coding Level of Care Code D/C DAY MANAGEMENT >30 MINS Diagnoses Pneumonia due to COVID-19 virus U07.1; J12.82 Asthma J45.909 Hypoxia R09.02
== END 2020-12-15 16:20 | disposition home or self-care (01) | DRG 177 ==
LOC: ED 15:28 → SUATTDRO 20:44 → 2E 20:44